=== PATIENT | male | born 1995 | race Caucasian/White ===

== ENCOUNTER 2021-07-11 12:26 | Inpatient (IN) | payer OTHER, SELFPAY ==
--- NOTE | ~2021-07-11 | CT_ITS ---
EXAMINATION: CT HEAD WITHOUT CONTRAST CLINICAL INFORMATION: Altered mental status. COMPARISON: None TECHNIQUE: Contiguous axial imaging was performed from the skull base to vertex without intravenous administration of contrast. This CT examination was performed using dose optimization techniques as appropriate, variously including the following: *Automated exposure control *Adjustment of mA and/or kV according to patient size (this includes techniques or standardized protocols for targeted exams where dose is matched to indication/reason for exam; i.e. extremities or head) *Use of iterative reconstruction technique DLP: 564 mGy-cm FINDINGS: There is no evidence of acute intracranial hemorrhage or territorial infarction. No abnormal mass effect or midline shift is seen. Craft to white matter differentiation is well preserved. No extra-axial fluid collections are identified. The ventricles are normal in size. There is no abnormal attenuation within the brain parenchyma. The osseous structures and soft tissues are normal. The mastoid air cells and visualized portions of the paranasal sinuses are well aerated. CT/CT head/brain wo con IMPRESSION: No acute intracranial process seen.
[2021-07-11 12:33] VITALS: BP 110/70; PULSE 74; O2SAT 100
[2021-07-11 12:42] VITALS: BP 98/67; PULSE 88; RESP 19; TEMP 36.6; O2SAT 98; BMI 20.5
[2021-07-11 13:13] LABS: COVID-19 Test Negative (Negative); IDNOW Serial# 9DD0AD1C
[2021-07-11 13:14] LABS: Amphetamine Screen Urine Not Detected (Not Detect); Barbiturates, Urine Not Detected (Not Detect); Benzodiazepines Screen Urine Not Detected (Not Detect); Cannabinoid Screen Urine Not Detected (Not Detect); Cocaine Screen Urine Not Detected (Not Detect); Fentanyl, urine Not Detected (Not Detect); Opiate Screen Urine Not Detected (Not Detect); Phencyclidine Screen Urine Not Detected (Not Detect)
[2021-07-11 13:42] LABS: MANUAL DIFF FLAG NO
[2021-07-11 13:44] LABS: Basophils Absolute Auto 0.1 X10*3/uL (0.0-0.2); Basophils Percent Auto 0.9 % (0-2); Eosinophils Absolute Auto 0.1 X10*3/uL (0.0-0.4); Eosinophils Percent Auto 1.5 % (0-4); Hemoglobin 14.9 g/dl (14.0-18.0); Imm Gran Abs Auto 0.03 X10*3/uL (0.00-0.03); Imm Gran Pct Auto 0.3 % (0.0-0.4); Lymphocytes Absolute Auto 3.2 X10*3/uL (1.2-4.9); Mean Corpuscular HGB Conc 33.9 g/dl (31.0-36.0); Mean Corpuscular Volume 91.5 fL (80-98); Mean Platelet Volume 9.7 fL (9.4-12.4); Monocytes Absolute Auto 0.7 X10*3/uL (0.1-1.2); Monocytes Percent Auto 7.5 % (2-11); Neutrophils Absolute Auto 5.2 X10*3/uL (2.0-8.3); Neutrophils Percent Auto 55.8 % (45-73); Platelet Count 264 X10*3/uL (160-400); Red Blood Count 4.81 X10*6/uL (4.60-5.80); Red Cell Distribution Width 11.7 % (11.0-16.0); White Blood Count 9.4 X10*3/uL (4.8-10.8)
[2021-07-11 13:58] LABS: Ethanol < 10 mg/dL
[2021-07-11 14:04] LABS: Alanine Aminotransferase 15 U/L (0-40); Albumin Level 4.7 g/dL (3.5-5.0); Alkaline Phosphatase 60 U/L (39-117); Anion Gap 16 (12-20); Aspartate Amino Transferase 17 U/L (5-37); Bilirubin Total 0.3 mg/dL (0.0-1.0); Blood Urea Nitrogen 21 mg/dL (9-16); Calcium 9.8 mg/dL (8.4-10.2); Carbon Dioxide 26 mmol/L (22-29); Chloride 102 mmol/L (96-108); Creatinine Clr Calc Pharmacy 107.2; Estimated Glomerular Filt Rate > 60; Glucose Random 84 mg/dL (60-115); Potassium 3.9 mmol/L (3.3-5.1); Sodium 140 mmol/L (135-145); Total Protein 7.6 g/dL (6.5-8.0)
--- NOTE | 2021-07-11 14:17 | ED_ITS ---
HPI - Psych General Chief Complaint: Psychiatric Symptoms Stated Complaint: SECT 12:PSYCHOSIS,ON SECT 35 @ [facility] Time Seen by Provider: 07/11/21 12:55 Source: RN notes reviewed Mode of arrival: EMS Limitations: altered mental status History of Present Illness HPI Narrative: 25-year-old male who was sent to the emergency department for medical clearance for psychiatric admission. The patient was on a Section 35 and was at [facility] since June 19, 2021. According to nursing notes, the patient was showing signs of psychosis-no specific details were provided. The patient was evaluated on 07/07/2021 by [facility] and the patient was kept at [facility] until today when the patient was accepted on to our psychiatric service. According to the note sent in from [facility], the patient was noncompliant with his medications and was not able to perform his ADLs. 1612: I did receive information from [facility]. The patient has a history of schizophrenia. For the last 3 months the patient has been homeless and has been taking PCP for over a year. The patient's mother reported this is CT a lies in his schizophrenia. The mother also believes that the patient has a peer group which is a negative influence on him. Patient was observed engaging in repetitive behaviors in talking to the wall. Apparently the patient was unable to engage in treatment at [place]. The patient was noncommunicative, using head shakes and is guarded. The patient was prescribed psychiatric medications on 06/22/2021 but refused taking them until 07/06/2021. Related Data Allergies Allergy/AdvReac Type Severity Reaction Status Date / Time No Known Allergies Allergy Verified 07/11/21 13:07 Review of Systems Review of Systems: Yes Unobtainable due to mental status [facility] Past Medical History [facility] Narrative: Past medical history: Unobtainable. Past surgical history: Unobtainable. Social history: Unobtainable, was reported by nursing staff that he had been using PCP. Social History Social History Advance Directives: No Advance Directives Information Provided: Yes Physical Exam Vital Signs: Vital Signs: Last Vital Signs Temp 98 F 07/11/21 12:42 Pulse 88 07/11/21 12:42 Resp 19 07/11/21 12:42 BP 98/67 07/11/21 12:42 Pulse Ox 98 07/11/21 12:42 Body Mass Index 20.5 Const: Other: Awake, alert male, patient does appear to be paranoid, he hesitates before answering questions and but does answer them appropriately . when I walked into the room he was lying on the bed but then stood up, when I approached the patient asked me to step back and not to get too close. HENMT: Head: Yes normal to inspection, Yes normocephalic and Yes atraumatic Ears: external ears normal General nose exam: Normal external nose present Face and sinus: Yes normal facial exam Mouth: Normal oral and palatal mucosa present Throat: Yes posterior oropharynx normal Eyes: General: appearance normal, both eyes and all related structures Pupils: Equal, round and reactive pupils present Neck: Neck: Yes normal visual inspection, Yes no lymphadenopathy, Yes trachea midline and Yes supple Chest: Chest palpation & inspection: normal inspection of the chest and normal palpation of entire chest wall Resp: Effort & Inspection: normal respiratory effort and able to speak in complete sentences Auscultation: clear to auscultation bilaterally Cardio: Rate: regular rate Rhythm: regular rhythm Heart sounds: S1 normal heart sound present, S2 normal heart sound present and no murmurs GI: Inspection: Yes normal to inspection Palpation (GI): Soft to palpation, nontender and no guarding Auscultation: normal bowel sounds : General: Yes no CVA tenderness Back/Spine/Pelvis: Back: no CVA tenderness Skin: General skin exam: no rashes or lesions noted Neuro: Cranial nerves: Yes CN's II-XII intact bilaterally and Yes Equal, round and reactive pupils present Cognition (Neuro): normal cognition Motor exam (neuro): 5/5 motor strength present throughout Extrem: General: Yes normal to inspection Psych: Appearance: grossly normal Speech and movement: Slowed speech presen t (Psych) Affect: Other affect and mood findings present (Paranoid affect) Attitude: cooperative Course Course Course Narrative: 25-year-old male who was on a Section 12 possibly for PCP abuse who was accepted here at our psychiatric facility for psychosis. The patient needs to be medically cleared. On examination I suspect the patient is paranoid, he was cooperative and did answer questions appropriately. I ordered a workup of this patient to include CBC, CMP, urine tox screen, alcohol level, TSH, CT scan of the brain. 1438: CBC was normal. CMP was normal. TSH was normal. Urine tox screen was negative. CT scan of the brain is pending. 1603: Patient's CT scan of the brain was unremarkable. At this time, there does not appear to be any significant medical condition to explain the patient's psychosis, therefore the patient is medically cleared for psychiatric admission. The patient will be admitted to the psychiatric service for further treatment. MDM - Psych Lab Data Result diagrams: 07/11/21 13:38 07/11/21 13:38 Labs: Lab Results 07/11/21 07/11/21 07/11/21 Range/Units 12:45 12:45 13:38 WBC 9.4 (4.8-10.8) X10*3/uL RBC 4.81 (4.60-5.80) X10*6/uL Hgb 14.9 (14.0-18.0) g/dl Hct 44.0 (42-52) % MCV 91.5 (80-98) fL MCH 31.0 (27.0-33.0) pg MCHC 33.9 (31.0-36.0) g/dl RDW 11.7 (11.0-16.0) % Plt Count 264 (160-400) X10*3/uL MPV 9.7 (9.4-12.4) fL Immature Gran % (Auto) 0.3 (0.0-0.4) % Neut % (Auto) 55.8 (45-73) % Lymph % (Auto) 34.0 (20-40) % [place] % (Auto) 7.5 (2-11) % Eos % (Auto) 1.5 (0-4) % Baso % (Auto) 0.9 (0-2) % Lymph # (Auto) 3.2 (1.2-4.9) X10*3/uL [place] # (Auto) 0.7 (0.1-1.2) X10*3/uL Eos # (Auto) 0.1 (0.0-0.4) X10*3/uL Baso # (Auto) 0.1 (0.0-0.2) X10*3/uL Abs Immat Gran (auto) 0.03 (0.00-0.03) X10*3/uL Absolute Neuts (auto) 5.2 (2.0-8.3) X10*3/uL Absolute Nucleated RBC 0.000 (0.0-0.012) X10*3/uL Nucleated RBC % (auto) 0.0 (0.0-0.2) /100WBC Sodium (135-145) mmol/L Potassium (3.3-5.1) mmol/L Chloride (96-108) mmol/L Carbon Dioxide (22-29) mmol/L Anion Gap (12-20) BUN (9-16) mg/dL Creatinine (0.5-1.4) mg/dL Estim Creat Clear Calc Estimated GFR Random Glucose (60-115) mg/dL Calcium (8.4-10.2) mg/dL Total Bilirubin (0.0-1.0) mg/dL AST (5-37) U/L ALT (0-40) U/L Alkaline Phosphatase (39-117) U/L Total Protein (6.5-8.0) g/dL Albumin (3.5-5.0) g/dL TSH (0.32-4.0) uIU/mL Urine Opiates Screen Not Detected (Not Detect) Urine Fentanyl Screen Not Detected (Not Detect) Ur Barbiturates Screen Not Detected (Not Detect) Ur Phencyclidine Scrn Not Detected (Not Detect) Ur Amphetamines Screen Not Detected (Not Detect) U Benzodiazepines Scrn Not Detected (Not Detect) Urine Cocaine Screen Not Detected (Not Detect) U Marijuana (THC) Screen Not Detected (Not Detect) Ethyl Alcohol mg/dL COVID-19 (BECK) Negative (Negative) COVID-19 Clin Com See Note 07/11/21 07/11/21 07/11/21 Range/Units 13:38 13:38 13:38 WBC (4.8-10.8) X10*3/uL RBC (4.60-5.80) X10*6/uL Hgb (14.0-18.0) g/dl Hct (42-52) % MCV (80-98) fL MCH (27.0-33.0) pg MCHC (31.0-36.0) g/dl RDW (11.0-16.0) % Plt Count (160-400) X10*3/uL MPV (9.4-12.4) fL Immature Gran % (Auto) (0.0-0.4) % Neut % (Auto) (45-73) % Lymph % (Auto) (20-40) % [place] % (Auto) (2-11) % Eos % (Auto) (0-4) % Baso % (Auto) (0-2) % Lymph # (Auto) (1.2-4.9) X10*3/uL [place] # (Auto) (0.1-1.2) X10*3/uL Eos # (Auto) (0.0-0.4) X10*3/uL Baso # (Auto) (0.0-0.2) X10*3/uL Abs Immat Gran (auto) (0.00-0.03) X10*3/uL Absolute Neuts (auto) (2.0-8.3) X10*3/uL Absolute Nucleated RBC (0.0-0.012) X10*3/uL Nucleated RBC % (auto) (0.0-0.2) /100WBC Sodium 140 (135-145) mmol/L Potassium 3.9 (3.3-5.1) mmol/L Chloride 102 (96-108) mmol/L Carbon Dioxide 26 (22-29) mmol/L Anion Gap 16 (12-20) BUN 21 H (9-16) mg/dL Creatinine 0.92 (0.5-1.4) mg/dL Estim Creat Clear Calc 107.2 Estimated GFR > 60 Random Glucose 84 (60-115) mg/dL Calcium 9.8 (8.4-10.2) mg/dL Total Bilirubin 0.3 (0.0-1.0) mg/dL AST 17 (5-37) U/L ALT 15 (0-40) U/L Alkaline Phosphatase 60 (39-117) U/L Total Protein 7.6 (6.5-8.0) g/dL Albumin 4.7 (3.5-5.0) g/dL TSH 1.37 (0.32-4.0) uIU/mL Urine Opiates Screen (Not Detect) Urine Fentanyl Screen (Not Detect) Ur Barbiturates Screen (Not Detect) Ur Phencyclidine Scrn (Not Detect) Ur Amphetamines Screen (Not Detect) U Benzodiazepines Scrn (Not Detect) Urine Cocaine Screen (Not Detect) U Marijuana (THC) Screen (Not Detect) Ethyl Alcohol < 10 mg/dL COVID-19 (BECK) (Negative) COVID-19 Clin Com Discharge Plan Discharge Patient Disposition: Admitted As Inpatient
[2021-07-11 14:19] LABS: TSH reflex Free T4 1.37 uIU/mL (0.32-4.0)
--- NOTE | 2021-07-11 23:25 | PC.NURSE ---
Patient remained in his room whole shift, poor eye contact, hypo-verbal, guarded, no distress observed/reported, appetite good, patient is on any medication at this time, will continue to monitor.
[2021-07-12 00:38] VITALS: BP 132/72; PULSE 97; RESP 16; TEMP 36.7; O2SAT 100
[2021-07-12 02:17] VITALS: BP 128/62; PULSE 93; RESP 16; TEMP 36; O2SAT 100
--- NOTE | 2021-07-12 04:01 | PC.ADMIT ---
Pt is a 25years old, transferred to the inpatient psych unit for concerns of increasing symptoms of schizophrenia. Covid negative, Tox negative, Pt denies Si/Hi, plan or intent. no auditory and visual hallucinations, plan or intent reported. Pt appears flat, hypo verbal, coherent, speech is clear, non pressured. pt hesitant to talk, dishevelled, poor judgment and impulse control.
[2021-07-12 06:00] VITALS: BP 131/74; PULSE 83; TEMP 36; O2SAT 97
[2021-07-12 07:00] VITALS: BMI 18.6
[2021-07-12] MEDS: HaloperidoL 5 MG TABLET PO ×2 (08:16→20:34)
--- NOTE | 2021-07-12 09:53 | HO.PSYADMNOT ---
HPI Chief Complaint: Psychosis Sources of Information: patient interviewed, chart reviewed and crisis/core team assessment reviewed HPI Subjective Notes: [place] Warning and Conditional Voluntary Narrative: Pt 25 yo male, with hx of substance abuse (PCP), currently under court ordered section 35, with unclear psychiatric hx, who presents for Section 35 due to bizarre behavior, not talking, not eating, facing wall...Pt is currently a poor historian. At first patient was selectively mute with engineering technical writer, only willing to nod head yes/no, though able to do so appropriately. Patient however warmed up some and in soft words, was able to share some of what's going on with him. Patient says that all he's been doing is eating and sleeping in the bed and is confused about what else is going on, so he thought it safest to just not say anything and thus has been mute. He endorses AH, that started about a month ago; he agrees that they say mean things, but also seems unsure of how he feels about them. Patient denies any SI or HI. He denies that he used PCP but does not like facility where he's being treated for substance abuse, though cannot say why. He agrees to try medication to help feeling confused and to eliminate AH and agrees to stay on Haldol which was started by admitting provider. Pt asks if he can call his mother and that she may be willing to come and get him. He tried to describe his relationship with his mother, but it was a confused description and unclear to this engineering technical writer. Pt gave verbal permission for staff to talk w/ mother. Patients answers remained in whispers and with few words; he was confused and unsure of hx making it difficult to get further information. Medical Evaluation Reviewed: Hospitalist Samanthaal Pending [facility] Family History: deferred Social History: deferred Substance History: PCP; court ordered section 35 Trauma History: deferred Diagnostics Vital Signs (24Hr): Vital Signs - 24 hr 07/11/21 12:42 07/12/21 00:38 07/12/21 02:17 Temperature 98 F 98.1 F 96.8 F Pulse Rate 88 97 93 Respiratory Rate 19 16 16 Blood Pressure 98/67 132/72 128/62 Pulse Oximetry 98 100 100 07/12/21 06:00 Temperature 96.8 F Pulse Rate 83 Respiratory Rate Blood Pressure 131/74 Pulse Oximetry 97 Body Mass Index 18.6 Labs Results: 07/11/21 13:38 07/11/21 13:38 Labs: Laboratory Results - last 48 hr 07/11/21 07/11/21 07/11/21 12:45 12:45 13:38 WBC 9.4 RBC 4.81 Hgb 14.9 Hct 44.0 MCV 91.5 MCH 31.0 MCHC 33.9 RDW 11.7 Plt Count 264 MPV 9.7 Immature Gran % (Auto) 0.3 Neut % (Auto) 55.8 Lymph % (Auto) 34.0 [place] % (Auto) 7.5 Eos % (Auto) 1.5 Baso % (Auto) 0.9 Lymph # (Auto) 3.2 [place] # (Auto) 0.7 Eos # (Auto) 0.1 Baso # (Auto) 0.1 Abs Immat Gran (auto) 0.03 Absolute Neuts (auto) 5.2 Absolute Nucleated RBC 0.000 Nucleated RBC % (auto) 0.0 Sodium Potassium Chloride Carbon Dioxide Anion Gap BUN Creatinine Estim Creat Clear Calc Estimated GFR Random Glucose Calcium Total Bilirubin AST ALT Alkaline Phosphatase Total Protein Albumin TSH Urine Opiates Screen Not Detected Urine Fentanyl Screen Not Detected Ur Barbiturates Screen Not Detected Ur Phencyclidine Scrn Not Detected Ur Amphetamines Screen Not Detected U Benzodiazepines Scrn Not Detected Urine Cocaine Screen Not Detected U Marijuana (THC) Screen Not Detected Ethyl Alcohol COVID-19 (BECK) Negative COVID-19 Clin Com See Note 07/11/21 07/11/21 07/11/21 13:38 13:38 13:38 WBC RBC Hgb Hct MCV MCH MCHC RDW Plt Count MPV Immature Gran % (Auto) Neut % (Auto) Lymph % (Auto) [place] % (Auto) Eos % (Auto) Baso % (Auto) Lymph # (Auto) [place] # (Auto) Eos # (Auto) Baso # (Auto) Abs Immat Gran (auto) Absolute Neuts (auto) Absolute Nucleated RBC Nucleated RBC % (auto) Sodium 140 Potassium 3.9 Chloride 102 Carbon Dioxide 26 Anion Gap 16 BUN 21 H Creatinine 0.92 Estim Creat Clear Calc 107.2 Estimated GFR > 60 Random Glucose 84 Calcium 9.8 Total Bilirubin 0.3 AST 17 ALT 15 Alkaline Phosphatase 60 Total Protein 7.6 Albumin 4.7 TSH 1.37 Urine Opiates Screen Urine Fentanyl Screen Ur Barbiturates Screen Ur Phencyclidine Scrn Ur Amphetamines Screen U Benzodiazepines Scrn Urine Cocaine Screen U Marijuana (THC) Screen Ethyl Alcohol < 10 COVID-19 (BECK) COVID-19 Clin Com Imaging Radiology Impressions: ITS Impressions Head CT 07/11/21 13:07 IMPRESSION: No acute intracranial process seen. Meds/Allergies Meds Home Medications Acetaminophen (Acetaminophen 325 Mg Tablet) 650 mg PO Q6H PRN PRN Reason: Headache/Pain Mild Scale (1-3) Al Hydroxide/Mg Hydroxide (Magnesium Hydrox/Alum Hydrox 30 Ml Oral.Susp) 30 ml PO Q6H PRN PRN Reason: Heartburn/Nausea Haloperidol (Haloperidol 5 Mg Tablet) 5 mg PO BID LIZZETH Last Admin: 07/12/21 20:34 Dose: 5 mg Documented by: Hydroxyzine HCl (Hydroxyzine Hcl 25 Mg Tablet) 25 mg PO BEDTIME PRN PRN Reason: Anxiety Magnesium Hydroxide (Milk Of Magnesia 30 Ml Oral.Susp) 30 ml PO DAILY PRN PRN Reason: Constipation Nicotine Polacrilex (Nicotine Polacrilex 2 Mg Gum) 2 mg BUCCAL Q2H PRN PRN Reason: Nicotine Cravings Trazodone HCl (Trazodone Hcl 50 Mg Tablet) 50 mg PO BEDTIME PRN PRN Reason: Insomnia Allergies Allergies Allergy/AdvReac Type Severity Reaction Status Date / Time No Known Allergies Allergy Verified 07/11/21 13:07 Mental Status Exam Mental Status Exam Patient Appearance: Unkempt Patient Orientation: Person Level of Consciousness: Awake and Appropriate Patient Behavior: Guarded, Anxious, Fearful, Avoidant, Confused and Good Eye Contact Mood Description: Anxious and Apprehensive Affect Description: Anxious and Apprehensive Ability to Follow Directions: Fair Speech Pattern: Soft-Spoken Hallucinations: Auditory Delusions: Present (paranoia unspecified ) Thought Process: Goal Oriented Thought Content: positive for Disorganized Abnormal Motor Activity Signs and Symptoms: Psychomotor Retardation Judgement: Poor Assessment & Plan Assessment & Plan (1) Psychotic disorder: Status: Acute Code(s): F29 - Unspecified psychosis not due to a substance or known physiological condition Assessment and Plan: IMPRESSION: Pt 25 yo male, with hx of substance abuse (PCP), currently under court ordered section 35, with unclear psychiatric hx, who presents for Section 35 due to bizarre behavior, not talking, not eating, facing wall...Pt is currently a poor historian. Patient can be selectively mute, however can have goal directed conversation once feels safe to do so -endorses problematic AH that say mean things; reports feeling confused, not sure where he was or why there, thinking it best to remain silent -currently dx with psychotic disorder w/ substancer induced as a rule out as gather more info; denies PCP abuse -pt agrees to continue with Haldol which was started by admitting provider -gave verbal permission for staff to talk with his mother about his admission PLAN: CV q15min continue haldol 5mg BID (started on admission) gather collateral hospitalist consult placed for admission physical Reason for continued inpatient stay Substantial Risk for: inability to function
[2021-07-12 16:06] VITALS: BP 121/65; PULSE 98; RESP 20; TEMP 36.9; O2SAT 98
[2021-07-13 06:00] VITALS: BP 125/71; PULSE 97; RESP 16; TEMP 36.6; O2SAT 100
[2021-07-13] MEDS: HaloperidoL 5 MG TABLET PO ×2 (09:35→21:05)
--- NOTE | 2021-07-13 17:10 | HO.PSYCHPN ---
Subjective Subjective Date of Service: 07/13/21 Reason For Visit: Psychosis Subjective Notes: Conditional Voluntary Interim History: Patient seen and discussed with team. I evaluated the patient this evening and during interview he declines to sit, says he would rather stand. I asked how the haldol is working, he gave me a thumbs up, shook his head no for side effects. He does continue to endorse AH but denies that they say mean things today, says he doesnt understand what they say and affirms that he hears more than one voice and they talk to each other. He says the voices ?sometimes? bother him, denies command hallucinations. I asked about sleep, also gives me a thumbs up. Says in the day he is ?really tired,? feels ?exhausted,? unable to say why but thinks he is getting enough sleep at night. Says daytime somnolence is ?new? and started ?since the whole section thing.? Appetite is good, eating. I asked about mood, again gave me a thumbs up. He shakes his head yes to indicate he is feeling safe, denies SI/SIB/HI upon inquiry. Denies akathesia or EPS.? In the milieu, patient is somewhat isolative but safe in behavior. Medication Compliance: Yes Side effects from medications: No Attending Groups: No Review of Systems Acute medical concerns: No Medical Review of Systems: unchanged Mental Status Exam Mental Status Exam Narrative: Patient Appearance: in hospital attire, showered today Patient Orientation:?Person Level of Consciousness:?Awake and Appropriate Patient Behavior:?Guarded, Anxious, Fearful, Avoidant, Confused and Good Eye Contact Mood Description:?no verbal response but gave thumbs up Affect Description:?Anxious and Apprehensive, inappropriate smiling/ laughing (appears to be responding to internal stimuli) Ability to Follow Directions:?Fair Speech Pattern:?Soft-Spoken Hallucinations:?Auditory Delusions:?Present (paranoia unspecified ) Thought Process:?Goal Oriented Thought Content:?positive for Disorganized Abnormal Motor Activity Signs and Symptoms:?Psychomotor Retardation Judgement:?Poor Diagnostics Vital Signs (24Hr): Vital Signs - 24 hr 07/13/21 06:00 Temperature 97.9 F Pulse Rate 97 Respiratory Rate 16 Blood Pressure 125/71 Pulse Oximetry 100 Body Mass Index 18.6 Labs Results: 07/11/21 13:38 07/11/21 13:38 Imaging Radiology Impressions: ITS Impressions Head CT 07/11/21 13:07 IMPRESSION: No acute intracranial process seen. Medications Medications Current Medications Acetaminophen (Acetaminophen 325 Mg Tablet) 650 mg PO Q6H PRN PRN Reason: Headache/Pain Mild Scale (1-3) Al Hydroxide/Mg Hydroxide (Magnesium Hydrox/Alum Hydrox 30 Ml Oral.Susp) 30 ml PO Q6H PRN PRN Reason: Heartburn/Nausea Haloperidol (Haloperidol 5 Mg Tablet) 5 mg PO BID LIZZETH Last Admin: 07/13/21 09:35 Dose: 5 mg Documented by: Hydroxyzine HCl (Hydroxyzine Hcl 25 Mg Tablet) 25 mg PO BEDTIME PRN PRN Reason: Anxiety Magnesium Hydroxide (Milk Of Magnesia 30 Ml Oral.Susp) 30 ml PO DAILY PRN PRN Reason: Constipation Nicotine Polacrilex (Nicotine Polacrilex 2 Mg Gum) 2 mg BUCCAL Q2H PRN PRN Reason: Nicotine Cravings Trazodone HCl (Trazodone Hcl 50 Mg Tablet) 50 mg PO BEDTIME PRN PRN Reason: Insomnia Allergies Allergies Allergy/AdvReac Type Severity Reaction Status Date / Time No Known Allergies Allergy Verified 07/11/21 13:07 Assessment & Plan Assessment & Plan (1) Psychotic disorder: Status: Acute Code(s): F29 - Unspecified psychosis not due to a substance or known physiological condition Assessment and Plan: IMPRESSION: Pt 25 yo male, with hx of substance abuse (PCP), currently under court ordered section 35, with unclear psychiatric hx, who presents for Section 35 due to bizarre behavior, not talking, not eating, facing wall...Pt is currently a poor historian. Patient can be selectively mute, however can have goal directed conversation once feels safe to do so -endorses problematic AH that say mean things; reports feeling confused, not sure where he was or why there, thinking it best to remain silent -currently dx with psychotic disorder w/ substancer induced as a rule out as gather more info; denies PCP abuse -pt agrees to continue with Haldol which was started by admitting provider -gave verbal permission for staff to talk with his mother about his admission 07/13/21: Continues to present with psychotic sx, no behavioral concerns, adherent with haldol. Reports AH that bother him. No changes made to medication plan. PLAN: CV q15min continue haldol 5mg BID (started on admission) gather collateral hospitalist consult placed for admission physical Greater than 50% of the session was spent on counseling and/or coordination of care Reason for contiued inpatient stay Substantial Risk for: inability to function, rapid decompensation and med/psych decompensation
[2021-07-13 18:00] VITALS: BP 115/82; PULSE 66
[2021-07-14] MEDS: HaloperidoL 5 MG TABLET PO ×2 (09:28→20:15)
--- NOTE | 2021-07-14 11:55 | HO.PSYCHPN ---
Subjective Subjective Date of Service: 07/14/21 Reason For Visit: Psychosis Subjective Notes: 3 Day Interim History: Pt feels that ah are worse on current medication and would like to go back on olanzapine and prior med he was on last time- He does not know why he stopped taking it Medication Compliance: Yes Side effects from medications: No (but he says symptoms are worse- though he is verbal - now) Attending Groups: No Review of Systems Acute medical concerns: No Medical Review of Systems: unchanged Review of Systems Review of Systems Yes all other systems are reviewed and are negative Mental Status Exam Mental Status Exam Narrative: stands up abruptly but may have been trying to polite and respectful - Patient Appearance: Disheveled and Rigid Patient Orientation: Person and Place Level of Consciousness: Awake Patient Behavior: Guarded Mood Description: Apathetic Affect Description: Flat Patient Cognition Impaired: No Ability to Follow Directions: Fair Speech Pattern: Difficulty Finding Words, Mumbled and Poor Articulation Hallucinations: Auditory Thought Process: Distracted and Slowed Thinking Thought Content: positive for Thought Blocking and positive for Disorganized Abnormal Motor Activity Signs and Symptoms: Psychomotor Retardation Judgement: Fair (taking meds, feels prior where better) Diagnostics Vital Signs (24Hr): Vital Signs - 24 hr 07/13/21 18:00 Pulse Rate 66 Blood Pressure 115/82 Body Mass Index 18.6 Labs Results: 07/11/21 13:38 07/11/21 13:38 Imaging Radiology Impressions: ITS Impressions Head CT 07/11/21 13:07 IMPRESSION: No acute intracranial process seen. Medications Medications Current Medications added olanzapine back in today at bed instead of trazodone Acetaminophen (Acetaminophen 325 Mg Tablet) 650 mg PO Q6H PRN PRN Reason: Headache/Pain Mild Scale (1-3) Al Hydroxide/Mg Hydroxide (Magnesium Hydrox/Alum Hydrox 30 Ml Oral.Susp) 30 ml PO Q6H PRN PRN Reason: Heartburn/Nausea Haloperidol (Haloperidol 5 Mg Tablet) 5 mg PO BID LIZZETH Last Admin: 07/14/21 09:28 Dose: 5 mg Documented by: Hydroxyzine HCl (Hydroxyzine Hcl 25 Mg Tablet) 25 mg PO BEDTIME PRN PRN Reason: Anxiety Magnesium Hydroxide (Milk Of Magnesia 30 Ml Oral.Susp) 30 ml PO DAILY PRN PRN Reason: Constipation Nicotine Polacrilex (Nicotine Polacrilex 2 Mg Gum) 2 mg BUCCAL Q2H PRN PRN Reason: Nicotine Cravings Trazodone HCl (Trazodone Hcl 50 Mg Tablet) 50 mg PO BEDTIME PRN PRN Reason: Insomnia Allergies Allergies Allergy/AdvReac Type Severity Reaction Status Date / Time No Known Allergies Allergy Verified 07/11/21 13:07 Assessment & Plan Assessment & Plan (1) Psychotic disorder: Status: Acute Code(s): F29 - Unspecified psychosis not due to a substance or known physiological condition Assessment and Plan: likely schizophrenia Assessment and Plan: IMPRESSION: Pt 25 yo male, with hx of substance abuse (PCP), currently under court ordered section 35, with unclear psychiatric hx, who presents for Section 35 due to bizarre behavior, not talking, not eating, facing wall...Pt is currently a poor historian. more verbal - -currently dx with psychotic disorder w/ substancer induced as a rule out as gather more info; denies PCP abuse Pt would like to try prior to medications he was on last hospitalization ( not here so no record- ) says one was olanzapine but can't think of the other - will contact mother to find out -gave verbal permission for staff to talk with his mother about his admission PLAN: CV q15min continue haldol 5mg BID restart olanzapine 5mg qhs gather collateral Greater than 50% of the session was spent on counseling and/or coordination of care Patient educated on: diagnosis and medication risk/benefits Reason for contiued inpatient stay Substantial Risk for: inability to function and rapid decompensation
[2021-07-14 12:11] VITALS: BP 139/69; PULSE 120; RESP 16; TEMP 36.2; O2SAT 97
[2021-07-14 19:20] VITALS: BP 109/68; PULSE 105; TEMP 36.8
[2021-07-14] MEDS: OLANZapine 5 MG TABLET PO (20:15)
[2021-07-14] MEDS: hydrOXYzine HCL 25 MG TABLET PO (20:37)
[2021-07-15] MEDS: HaloperidoL 5 MG TABLET PO ×2 (09:24→19:39)
[2021-07-15 09:28] VITALS: BP 121/80; PULSE 113; RESP 16; TEMP 36.6; O2SAT 98
--- NOTE | 2021-07-15 11:41 | HO.PSYCHPN ---
Subjective Subjective Date of Service: 07/15/21 Reason For Visit: Psychosis Subjective Notes: 3 Day Interim History: oddly acting young man , gets up in odd way dipping head to pillow and making movements with hands toward pillow/bed but without touching it- did this multiple times and told me it was just to get out of bed- Reports he stopped olanzapine 10mg bid due to xs sedation and he had wanted to get a job can't say how he thinks haldol is making him worse and doesn't want olanzapine increased, so told him he should continue on both for now Medication Compliance: Yes Side effects from medications: No Attending Groups: No Review of Systems Acute medical concerns: No Medical Review of Systems: unchanged Mental Status Exam Mental Status Exam Narrative: odd mannerisms with head/arms gets up to talk to provider Patient Appearance: Appropriate Patient Orientation: Person, Place and Situation Level of Consciousness: Awake Patient Behavior: Guarded, Posturing and Resistive to Care Mood Description: Calm Affect Description: Apathetic and Flat Ability to Follow Directions: Fair Speech Pattern: Soft-Spoken and Delayed Hallucinations: Auditory Thought Process: Slowed Thinking Thought Content: positive for Thought Blocking and positive for Disorganized Depressive Symptoms: Difficulty Concentrating Judgement: Poor Diagnostics Vital Signs (24Hr): Vital Signs - 24 hr 07/14/21 12:11 07/14/21 19:20 07/15/21 09:28 Temperature 97.1 F 98.2 F 97.9 F Pulse Rate 120 H 105 H 113 H Respiratory Rate 16 16 Blood Pressure 139/69 109/68 121/80 Pulse Oximetry 97 98 Body Mass Index 18.6 Labs Results: 07/11/21 13:38 07/11/21 13:38 Imaging Radiology Impressions: ITS Impressions Head CT 07/11/21 13:07 IMPRESSION: No acute intracranial process seen. Medications Medications Current Medications Acetaminophen (Acetaminophen 325 Mg Tablet) 650 mg PO Q6H PRN PRN Reason: Headache/Pain Mild Scale (1-3) Al Hydroxide/Mg Hydroxide (Magnesium Hydrox/Alum Hydrox 30 Ml Oral.Susp) 30 ml PO Q6H PRN PRN Reason: Heartburn/Nausea Haloperidol (Haloperidol 5 Mg Tablet) 5 mg PO BID LIZZETH Last Admin: 07/15/21 09:24 Dose: 5 mg Documented by: Hydroxyzine HCl (Hydroxyzine Hcl 25 Mg Tablet) 25 mg PO BEDTIME PRN PRN Reason: Anxiety Last Admin: 07/14/21 20:37 Dose: 25 mg Documented by: Magnesium Hydroxide (Milk Of Magnesia 30 Ml Oral.Susp) 30 ml PO DAILY PRN PRN Reason: Constipation Nicotine Polacrilex (Nicotine Polacrilex 2 Mg Gum) 2 mg BUCCAL Q2H PRN PRN Reason: Nicotine Cravings Olanzapine (Olanzapine 5 Mg Tablet) 5 mg PO BEDTIME LIZZETH Last Admin: 07/14/21 20:15 Dose: 5 mg Documented by: Allergies Allergies Allergy/AdvReac Type Severity Reaction Status Date / Time No Known Allergies Allergy Verified 07/11/21 13:07 Assessment & Plan Assessment & Plan (1) Psychotic disorder: Status: Acute Code(s): F29 - Unspecified psychosis not due to a substance or known physiological condition Assessment and Plan: likely schizophrenia Assessment and Plan: 25 yo HM who stopped meds due to sedation, then says his mom put him in here for no reason- I told pt he was non verbal on admission- he denies this -gave verbal permission for staff to talk with his mother about his admission PLAN: CV q15min consider inc antipsychotic Friday- he was not agreeable today - says he doesn't want to be on medication told him he has schizophrenia gather collateral Greater than 50% of the session was spent on counseling and/or coordination of care Patient educated on: diagnosis and medication risk/benefits Informed Consent: does not understand Reason for contiued inpatient stay Substantial Risk for: rapid decompensation
[2021-07-15 19:20] VITALS: BP 106/59; PULSE 111; TEMP 37.2
[2021-07-15] MEDS: OLANZapine 5 MG TABLET PO (19:40)
[2021-07-16] MEDS: HaloperidoL 5 MG TABLET PO (09:00)
[2021-07-16 19:15] VITALS: BP 120/62; PULSE 101; TEMP 37.2
--- NOTE | 2021-07-16 20:44 | P.PNPSI_ITS ---
Subjective Subjective Date of Service: 07/16/21 Reason For Visit: Psychosis Interim History: PT reports that he's feeling better; he continues to have AH but says they aren't bothersome anymore which he thinks is likely due to the Zyprexa which he agrees to increase and prefers over the haldol. pt denies any SI or HI. He says he would like to discharge and wants to go to a [facility] ([facility]) where he's applied to be at in the past and thinks they will still have a bed for him; he is fuzzy on the details. Pt says she plans to remain sober. 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 Mental Status Exam Mental Status Exam Patient Appearance: Unkempt Patient Orientation: Person, Place, Time and Situation Level of Consciousness: Awake and Appropriate Patient Behavior: Cooperative, Timid and Good Eye Contact Mood Description: Constricted Affect Description: Anxious Ability to Follow Directions: Fair Speech Pattern: Clear and Appropriate Hallucinations: Auditory Delusions: Not Present Thought Process: Goal Oriented Thought Content: positive for Goal Oriented, positive for Suicidal Ideation (denies) and positive for Homicidal Ideation (denies) Abnormal Motor Activity Signs and Symptoms: Psychomotor Retardation (none) Judgement: Fair Diagnostics Vital Signs (24Hr): Body Mass Index 18.6 Labs Results: 07/11/21 13:38 07/11/21 13:38 Imaging Radiology Impressions: ITS Impressions Head CT 07/11/21 13:07 IMPRESSION: No acute intracranial process seen. Medications Medications Current Medications Acetaminophen (Acetaminophen 325 Mg Tablet) 650 mg PO Q6H PRN PRN Reason: Headache/Pain Mild Scale (1-3) Al Hydroxide/Mg Hydroxide (Magnesium Hydrox/Alum Hydrox 30 Ml Oral.Susp) 30 ml PO Q6H PRN PRN Reason: Heartburn/Nausea Hydroxyzine HCl (Hydroxyzine Hcl 25 Mg Tablet) 25 mg PO BEDTIME PRN PRN Reason: Anxiety Last Admin: 07/14/21 20:37 Dose: 25 mg Documented by: Magnesium Hydroxide (Milk Of Magnesia 30 Ml Oral.Susp) 30 ml PO DAILY PRN PRN Reason: Constipation Nicotine Polacrilex (Nicotine Polacrilex 2 Mg Gum) 2 mg BUCCAL Q2H PRN PRN Reason: Nicotine Cravings Olanzapine (Olanzapine 10 Mg Tablet) 10 mg PO BEDTIME LIZZETH Allergies Allergies Allergy/AdvReac Type Severity Reaction Status Date / Time No Known Allergies Allergy Verified 07/11/21 13:07 Assessment & Plan Assessment & Plan (1) Psychotic disorder: Status: Acute Code(s): F29 - Unspecified psychosis not due to a substance or known physiological condition Assessment and Plan: likely schizophrenia Assessment and Plan: Pt 25 yo male, with hx of substance abuse (PCP), currently under court ordered section 35, with unclear psychiatric hx, who presents for Section 35 due to bizarre behavior, not talking, not eating, facing wall...Pt is currently a poor historian.? Patient can be selectively mute, however can have goal directed conversation once feels safe to do so -endorses problematic AH that say mean things; reports feeling confused, not sure where he was or why there, thinking it best to remain silent -currently dx with psychotic disorder w/ substancer induced as a rule out as gather more info; denies PCP abuse -pt agrees to continue with Haldol which was started by admitting provider -gave verbal permission for staff to talk with his mother about his admission 07/13/21: Continues to present with psychotic sx, no behavioral concerns, adherent with haldol. Reports AH that bother him. No changes made to medication plan.? 07/16 has improved since starting zyprexa; says AH remain but no longer bother him; asks for dc; denies SI/HI; agrees to increase zyprexa since AH remain and dc haldol PLAN: 3 day notice due 07/18 q15min increase zyprexa to 10mg qhs (was on this med before and it was restarted over the weekend) dc haldol (pt improved once zyprexa started)l Greater than 50% of the session was spent on counseling and/or coordination of care Reason for contiued inpatient stay Substantial Risk for: med/psych decompensation
[2021-07-16] MEDS: OLANZapine 10 MG TABLET PO (21:06)
[2021-07-17 06:00] VITALS: BP 128/88; PULSE 82; RESP 18; TEMP 36.6; O2SAT 97
--- NOTE | 2021-07-17 17:22 | HO.PSYCHPN ---
Subjective Subjective Date of Service: 07/17/21 Reason For Visit: Psychosis Interim History: Patient asks for discharge tomorrow as his 3 day notice is due. He says that auditory hallucinations have completely resolved with Zyprexa. He denies any SI or HI and reports that he is doing good. He says that he does not like being on the unit, feeling cooped up, unable to get to work or exercise. Patient says that he has an upcoming court date and that he wants a chance to be outside for a while prior to court in case he has incarcerated. He explains to ticket writer that his brother paid his bail and is expecting to be repaid; patient is worried that his brother could revoke bail , which would send patient back to senior care; thus he is eager to get to work so he can repay this debt. Violin Tutor asked patient his plan. Patient wants to go to the [facility] where he has been before; he says that if he cannot get a bed there he will go to [facility] where he has also been. He says both her preferable to remaining on the unit. Violin Tutor asked him if he would continue taking his medication to which he said probably. Patient also said that he intends to remain sober and that he will be able to. At times he has denied substance abuse history. Violin Tutor asked patient to rescind his 3 day notice so as to better help him with a more encouraging discharge plan. Patient said that he feels fine about his current plan, wanting to discharge and reiterating that he is fine going to a half-way. Patient does not want an increase in Zyprexa and politely said no thank you and that he would like to discharge tomorrow. Mental Status Exam Mental Status Exam Narrative: Patient Appearance:?Unkempt Patient Orientation:?Person, Place, Time and Situation Level of Consciousness:?Awake and Appropriate Patient Behavior:?Cooperative, Timid and Good Eye Contact Mood Description: good Affect Description:?blunted Ability to Follow Directions:?Fair Speech Pattern:?Clear and Appropriate Hallucinations:?denies; says fully resolved Delusions:?Not Present; denies Thought Process:?Goal Oriented, linear and logical Thought Content:?on discharge and aftercare plans mostly focused on finding work Abnormal Motor Activity Signs and Symptoms:?none Judgment:?impaired but improved Diagnostics Vital Signs (24Hr): Vital Signs - 24 hr 07/16/21 19:15 07/17/21 06:00 Temperature 98.9 F 97.8 F Pulse Rate 101 H 82 Respiratory Rate 18 Blood Pressure 120/62 128/88 Pulse Oximetry 97 Body Mass Index 18.6 Labs Results: 07/11/21 13:38 07/11/21 13:38 Imaging Radiology Impressions: ITS Impressions Head CT 07/11/21 13:07 IMPRESSION: No acute intracranial process seen. Medications Medications Current Medications Acetaminophen (Acetaminophen 325 Mg Tablet) 650 mg PO Q6H PRN PRN Reason: Headache/Pain Mild Scale (1-3) Al Hydroxide/Mg Hydroxide (Magnesium Hydrox/Alum Hydrox 30 Ml Oral.Susp) 30 ml PO Q6H PRN PRN Reason: Heartburn/Nausea Hydroxyzine HCl (Hydroxyzine Hcl 25 Mg Tablet) 25 mg PO BEDTIME PRN PRN Reason: Anxiety Last Admin: 07/14/21 20:37 Dose: 25 mg Documented by: Magnesium Hydroxide (Milk Of Magnesia 30 Ml Oral.Susp) 30 ml PO DAILY PRN PRN Reason: Constipation Nicotine Polacrilex (Nicotine Polacrilex 2 Mg Gum) 2 mg BUCCAL Q2H PRN PRN Reason: Nicotine Cravings Olanzapine (Olanzapine 10 Mg Tablet) 10 mg PO BEDTIME LIZZETH Last Admin: 07/16/21 21:06 Dose: 10 mg Documented by: Allergies Allergies Allergy/AdvReac Type Severity Reaction Status Date / Time No Known Allergies Allergy Verified 07/11/21 13:07 Assessment & Plan Assessment & Plan (1) Psychotic disorder: Status: Acute Code(s): F29 - Unspecified psychosis not due to a substance or known physiological condition Assessment and Plan: likely schizophrenia Assessment and Plan: Pt 25 yo male, with hx of substance abuse (PCP), currently under court ordered section 35, with unclear psychiatric hx, who presents for Section 35 due to bizarre behavior, not talking, not eating, facing wall...Pt is currently a poor historian.? Patient can be selectively mute, however can have goal directed conversation once feels safe to do so -endorses problematic AH that say mean things; reports feeling confused, not sure where he was or why there, thinking it best to remain silent -currently dx with psychotic disorder w/ substancer induced as a rule out as gather more info; denies PCP abuse -pt agrees to continue with Haldol which was started by admitting provider -gave verbal permission for staff to talk with his mother about his admission 07/13/21: Continues to present with psychotic sx, no behavioral concerns, adherent with haldol. Reports AH that bother him. No changes made to medication plan.? 07/16 has improved since starting zyprexa; says AH remain but no longer bother him; asks for dc; denies SI/HI; agrees to increase zyprexa since AH remain and dc haldol 07/17 patient reports auditory hallucinations have fully resolved; he continues to deny any SI or HI and asks for discharge as his 3 day notice is do tomorrow. He reports sleeping well and eating well and although keeping mostly to himself has demonstrated safe and overall appropriate behaviors. He says he wants a discharge to a half-way which he finds preferable to remaining on the unit in his ultimate goal is to find work so he can read pay his brother for posting bail. Patient's speech is linear, logical and organized and he is able to explain his plans well and with consistent logic. His insight and judgment remain somewhat impaired and regarding whether he'll continue to take medication, he says probably. His mother reports that he frequently stops taking his medications once discharged. Given his history of poor medication adherence and substance abuse, He remains vulnerable to relapse and decompensation at some point. However he is currently not in imminent risk for harm to self or others and he does not meet criteria for involuntary commitment. Patient request for discharge honored PLAN: 3 day notice due 07/18; will proceed with discharge q15min zyprexa to 10mg qhs (was on this med before and it was restarted over the weekend) dc haldol (pt improved once zyprexa started)l Greater than 50% of the session was spent on counseling and/or coordination of care Reason for contiued inpatient stay Substantial Risk for: stable for discharge
--- NOTE | 2021-07-17 17:27 | P.DS_ITS ---
DS: Providers Provider Date of Service: 07/18/21 Date of admission: 07/12/21 01:08 Date of discharge: 07/18/21 Primary care physician: Unknown Physician Attending physician on admission: Song Arredondo Attending physician on discharge: Song Arredondo DS: Diagnosis Discharge Diagnosis (1) Schizophrenia: Status: Chronic (2) PCP (phencyclidine) abuse: Status: Chronic DS: Medications Discharge Medications Home Medications: Previous Rx's Medication Instructions Recorded olanzapine 10 mg tablet 10 mg PO BEDTIME 30 Days #30 tab 07/17/21 Mental Status Exam Mental Status Exam Narrative: Patient Appearance:?Unkempt Patient Orientation:?Person, Place, Time and Situation Level of Consciousness:?Awake and Appropriate Patient Behavior:?Cooperative, Timid and Good Eye Contact Mood Description: good Affect Description:?blunted Ability to Follow Directions:?Fair Speech Pattern:?Clear and Appropriate Hallucinations:?denies; says fully resolved Delusions:?Not Present; denies Thought Process:?Goal Oriented, linear and logical Thought Content:?on discharge and aftercare plans mostly focused on finding work Abnormal Motor Activity Signs and Symptoms:?none Judgment:?impaired but improved Data Data Completed and Pending Completed studies during hospitalization [Text1]: 07/11/21 07/11/21 07/11/21 12:45 12:45 13:38 WBC 9.4 RBC 4.81 Hgb 14.9 Hct 44.0 MCV 91.5 MCH 31.0 MCHC 33.9 RDW 11.7 Plt Count 264 MPV 9.7 Immature Gran % (Auto) 0.3 Neut % (Auto) 55.8 Lymph % (Auto) 34.0 [place] % (Auto) 7.5 Eos % (Auto) 1.5 Baso % (Auto) 0.9 Lymph # (Auto) 3.2 [place] # (Auto) 0.7 Eos # (Auto) 0.1 Baso # (Auto) 0.1 Abs Immat Gran (auto) 0.03 Absolute Neuts (auto) 5.2 Absolute Nucleated RBC 0.000 Nucleated RBC % (auto) 0.0 Sodium Potassium Chloride Carbon Dioxide Anion Gap BUN Creatinine Estim Creat Clear Calc Estimated GFR Random Glucose Calcium Total Bilirubin AST ALT Alkaline Phosphatase Total Protein Albumin TSH Urine Opiates Screen Not Detected Urine Fentanyl Screen Not Detected Ur Barbiturates Screen Not Detected Ur Phencyclidine Scrn Not Detected Ur Amphetamines Screen Not Detected U Benzodiazepines Scrn Not Detected Urine Cocaine Screen Not Detected U Marijuana (THC) Screen Not Detected Ethyl Alcohol COVID-19 (BECK) Negative COVID-19 Clin Com See Note 07/11/21 07/11/21 07/11/21 13:38 13:38 13:38 WBC RBC Hgb Hct MCV MCH MCHC RDW Plt Count MPV Immature Gran % (Auto) Neut % (Auto) Lymph % (Auto) [place] % (Auto) Eos % (Auto) Baso % (Auto) Lymph # (Auto) [place] # (Auto) Eos # (Auto) Baso # (Auto) Abs Immat Gran (auto) Absolute Neuts (auto) Absolute Nucleated RBC Nucleated RBC % (auto) Sodium 140 Potassium 3.9 Chloride 102 Carbon Dioxide 26 Anion Gap 16 BUN 21 H Creatinine 0.92 Estim Creat Clear Calc 107.2 Estimated GFR > 60 Random Glucose 84 Calcium 9.8 Total Bilirubin 0.3 AST 17 ALT 15 Alkaline Phosphatase 60 Total Protein 7.6 Albumin 4.7 TSH 1.37 Urine Opiates Screen Urine Fentanyl Screen Ur Barbiturates Screen Ur Phencyclidine Scrn Ur Amphetamines Screen U Benzodiazepines Scrn Urine Cocaine Screen U Marijuana (THC) Screen Ethyl Alcohol < 10 COVID-19 (BECK) COVID-19 Clin Com Imaging Diagnostic Imaging Impressions Head CT 07/11/21 13:07 IMPRESSION: No acute intracranial process seen. DS: Summary Hospital Course Hospital Course: Pt 25 yo male, with hx of substance abuse (PCP), transported from court ordered [address] at [place] for bizarre, not talking, not eating, facing wall... On admission, patient was a poor historian at [facility] selectively mute to certain staff only nodding yes and no; however he was able to feel more comfortable and shared that he has been having auditory hallucinations and that he felt unsafe it is prior location and so stop talking, thinking it was safest to do so. Patient had been started by admitting provider on Haldol and he agreed to remain on this medication. Patient denied any SI or HI. He mostly kept to himself and spoke only when addressed however he continued to demonstrate safe and overall appropriate behaviors throughout his admission. Patient did not like Haldol which was discontinued by covering provider who started him on Zyprexa which patient said was helpful and which resolved auditory hallucinations. Patient was eating and sleeping well and reported that auditory hallucinations remained fully resolved; he denied any paranoid and/or delusional thinking. He signed a 3 day notice and asked for discharge. Personnel Analyst asked patient to rescind 3 day notice to remain on the unit a little longer and continue with treatment as patient remained anxious, unkempt and keeping to himself. He politely declined however and said he would like to discharge to a longterm which he finds preferable to remaining on the unit; patient mentioned to specific shelters which she has been to before and says that he feels fine staying there and was able to accurately name of one of the main staff workers at [facility]. He says that he does not like being on the unit, feeling cooped up and unable to find work or exercise.? Patient says that he has an upcoming court date and that he wants a chance to be outside for a while prior to court incase he ends up incarcerated.? His immediate goal is to find work so he can re- pay his brother for posting bail.?He explains further his brother is expecting to be repaid and pt is worried that his brother may get tired of waiting and could revoke bail which would send patient back to shelter.? Personnel Analyst asked about patients plan for housing. Patient said wants to go to the [facility] which he likes best; he says that if he cannot get a bed there he will go to [facility] and reiterates that both are preferable to remaining on the unit.? Personnel Analyst asked him if he would continue taking his medication to which he said probably. Patient also said that he intends to remain sober.? Personnel Analyst again if patient would remain on unit for a little longer so as to increase Zyprexa dose and to better help him develop a more encouraging discharge plan. Patient politely said he feels fine about his current plan, reiterating that he is fine going to a longterm and does not want an increase in Zyprexa. Patient's speech was linear, logical and organized and he was able to explain his plans with consistent logic.? Though improved, his insight and judgment remain impaired and given his history of poor medication adherence and substance abuse, he remains vulnerable to relapse and decompensation at some point. However he is currently not in imminent risk for harm to self or others and he does not meet criteria for involuntary commitment.? Patient? request for discharge honored Status at Discharge Functional status at discharge: independent ambulation Overall status at discharge: patient is back to baseline Time Spent with Patient Time attestation: Total time spent providing and/or coordinating discharge services: Time spent: Greater than 30 minutes Discharge Plan Discharge Patient Disposition: Skilled Nursing Discharge Diagnosis: Schizophrenia, paranoid type in partial remission Referrals: [facility] [Other] (Walk in if needed.) [facility] [Other] - 07/18/21 2:00 pm (You have been referred for a bed at the [address] [place] [address] for sav. [facility] will work with you to transfer to the [address] [place] [address] location. Cierra durand work with staff to obtain outpatient mental health providers.) Discharge Medications: New olanzapine 10 mg Tablet 10 mg PO BEDTIME 30 Days Qty: 30 RF: 0 Discharge Orders: Discharge Order (Routine); Ordered 07/18/21 Ordered By: Song Arredondo Diet: regular diet Activity on Discharge: As tolerated Stand Alone Forms: Patient Portal Discharge page, Community Support Care Plan Goals: Maintain mood and safe behaviors Take medications as prescribed Continue to pursue sobriety Practice coping skills Continue with outpatient providers and reach out to them as needed ? Health Concerns: Mood stability and behaviors Sobriety Plan of Treatment: Follow up with your psychiatric provider regarding above concerns Take medications as prescribed Assessment: Risk assessment at time of discharge:? Patient was interviewed prior to discharge and found to be fully oriented and without any SI or HI. Patient has insight and demonstrates good judgment in terms of wanting to pursue treatment. Patient is not in imminent risk of harm to self or others and has a safety plan that includes presenting to the closest ER or calling 911 if feeling unsafe.? Patient has been observed closely by nursing and unit staff throughout admission; patient has not engaged in any behaviors that suggest dangerousness to self or others and has demonstrated appropriate impulse control.
[2021-07-17] MEDS: OLANZapine 10 MG TABLET PO (21:21)
[2021-07-17 21:25] VITALS: BP 126/67; PULSE 95; TEMP 37.1; O2SAT 97
[2021-07-18 06:00] VITALS: BP 115/75; PULSE 73; RESP 16; TEMP 36.1; O2SAT 100
[2021-07-18] MEDS: Naloxone HCl Nasal TAKE HOME 4 MG SPRAY NOSTRILALT (08:39)
[2021-07-18 09:10] LABS: COVID-19 Test Negative (Negative); IDNOW Serial# 9DD0AD1C
== END 2021-07-18 14:49 | disposition home or self-care (01) | DRG 750 ==
LOC: HO.ED 16:15 → HO.PM5 07-12 01:13
PROVIDERS: Admitting Provider Psychiatry & Neurology Psychiatry; Emergency Provider Emergency Medicine Emergency Medical Services; Visit Provider Psychiatry & Neurology Psychiatry
DX: F20.0 Paranoid schizophrenia (principal); Z20.822 Contact with and (suspected) exposure to COVID-19; Z79.899 Other long term (current) drug therapy
CPT/HCPCS: 36415; 70450; 80053; 80307; 82077; 84443; 85025; 87635; 99285